=== PATIENT | male | born 1990 | race Two or more races ===

== ENCOUNTER 2024-11-14 14:39 | Inpatient (IN) | payer OTHER ==
[~2024-11-14] VITALS: Ht 177.8 cm; Wt 96.8 kg
[2024-11-14 14:50] VITALS: TEMP 98.8
--- NOTE | 2024-11-14 15:05 | ED.PDOC ---
History of Present Illness HPI Comments 34-year-old male BIBA with no prior medical history associated to the chief complain of EtOH. EMS not the [facility] lying on the ground when bystanders saw the patient foaming from the mouth and called 911, possibly due from on OD. When police arrived on scene the patient was very uncooperative wit h them and had to be restrained. Patient did have one episode of emesis. Spit mask was put onto the patient in route to ER. Denies chills, fever, /D, SOB, CP. No other associated symptoms, modifiers, recent injuries or sick contacts present at this time. Chief Complaint: ETOH Time Seen by MD: 15:00 Reviewed Notes: Nurses Notes, Medications, Allergies Allergies: Coded Allergies: NO KNOWN ALLERGIES (Unverified , 11/14/24) Information Source: Patient Mode of Arrival: EMS Severity: Moderate Timing: Came on: Gradually Duration: Since onset Prehospital treatment: None Past Medical History PAST MEDICAL HISTORY: Denies Surgical History: Denies all surgeries Family History Family History: Reviewed,noncontributory to illness, Unknown Social History Smoker: Non-Smoker Alcohol: Heavy Drugs: Denies Drug Use Lives In: Home Constitutional: reports: others (ETOH); denies: chills, diaphoresis, fatigue, fever, malaise, sweats, weakness EENTM: denies: blurred vision, double vision, ear bleeding, ear discharge, ear drainage, ear pain, ear ringing, eye pain, eye redness, hearing loss, mouth pain, mouth swelling, nasal discharge, nose bleeding, nose congestion, nose pain, photophobia, tearing, throat pain, throat swelling, voice changes, others Respiratory: denies: cough, hemoptysis, orthopnea, SOB at rest, shortness of breath, SOB with excertion, stridor, wheezing, others Cardiovascular: denies: chest pain, dizzy spells, diaphoresis, Dyspnea on exertion, edema, irregular heart beat, left arm pain, lightheadedness, palpitations, PND, syncope, others Gastrointestinal: reports: nausea, vomiting; denies: abdomen distended, abdominal pain, blood streaked bowels, constipated, diarrhea, dysphagia, difficulty swallowing, hematemesis, melena, poor appetite, poor fluid intake, rectal bleeding, rectal pain, others Genitourinary: denies: burning, dysuria, flank pain, frequency, hematuria, incontinence, penile discharge, penile sore, pain, testicle pain, testicle swelling, urgency, others Neurological: denies: dizziness, fainting, headache, left sided numbness, left sided weakness, numbness, paresthesia, pre-existing deficit, right sided numbness, right sided weakness, seizure, speech problems, tingling, tremors, weakness, others Musculoskeletal: denies: back pain, gout, joint pain, joint swelling, muscle pain, muscle stiffness, neck pain, others Integumetry: denies: bruises, change in color, change in hair/nails, dryness, laceration, lesions, lumps, rash, wounds, others Allergic/Immunocompromised: denies: Difficulty Healing, Frequent Infections, Hives, Itching, others Hematologic/Lymphatic: denies: anemia, blood clots, easy bleeding, easy bruising, swollen glands, others Endocrine: denies: excessive hunger, excessive sweating, excessive thirst, excessive urination, flushing, intolerance to cold, intolerance to heat, un explained weight gain, unexplained weight loss, others Psychiatric: denies: anxiety, bipolar disorder, depression, hopeless, panic disorder, schizophrenia, sleepless, suicidal, others All Other Systems: Reviewed and Negative Physical Exam General Appearance: Moderate Distress, Normal HEENT: Normal ENT Inspection, Pharynx Normal, TMs Normal Neck: Full Range of Motion, Non-Tender, Normal, Normal Inspection Respiratory: Chest Non-Tender, Lungs Clear, No Accessory Muscle Use, No Respiratory Distress, Normal Breath Sounds Cardiovascular: No Edema, No JVD, No Murmur, No Gallop, Normal Peripheral Pulse s, Regular Rate/Rhythm Breast Exam: Deferred Gastrointestinal: No Organomegaly, Non Tender, No Pulsatile Mass, Normal Bowel Sounds, Soft Genitalia: Deferred Pelvic: Deferred Rectal: Deferred Extremities: No calf tenderness, Normal capillary refill, Normal range of motion, Non-tender, No pedal edema Musculoskeletal : Apperance: Normal Neurologic: Disoriented, No Motor Deficits, Normal Mood, No Sensory Deficits Cerebellar Function: NOT DONE Reflexes: NOT DONE Skin: Dry, Normal Color, Warm Lymphatic: No Adenopathy Was a procedure done? Was a procedure done?: No Differential Dx Considerations may include: Metabolic encephalopathy Alcohol abuse X-Ray, Labs, Meds, VS Vital Signs Date Time Temp Pulse Resp B/P (MAP) Pulse Ox O2 Delivery O2 Flow Rate FiO2 11/14/24 15:30 Room Air* 0 21 11/14/24 14:50 98.8 92 18 143/79 96 98.8 Current Medications Medications (Trade) Dose Ordered Sig/Brittany Route Start Time Stop Time Status Last Admin Sodium Chloride 1,000 ml @ 1,000 mls/hr Q1H ONCE IVB 11/14/24 16:45 11/14/24 17:44 11/14/24 17:10 Thiamine HCl 100 mg ONCE ONCE IV 11/14/24 16:45 11/14/24 16:46 DC 11/14/24 17:10 Patient altered. Very abusive. Try to get a CT scan of the head. Moving all extremities. Unknown which chemical he has ingested. Brain possibly intact. Establish intravenous access. Was given fluids. Was given thiamine. He was very aggressive in the CT scanner for which he had to be pulled out. Will be followed by night physician. Time of 1ST Reevaluation: 15:30 Reevaluation 1ST: Unchanged Patient Education/Counseling: Diagnosis, Treatment, Prognosis Family Education/Counseling: No Family Present SEPSIS Sepsis Screen Physician Orders Complete Blood Count (11/14/24 16:35) Drug Screen (11/14/24 16:35) Acetaminophen (11/14/24 16:35) Salicylate (11/14/24 16:35) Urinalysis (11/14/24 16:35) Chest Portable (11/14/24 16:35) Blood Alcohol (11/14/24 16:35) Sodium Chloride 0.9% (11/14/24 16:45) Basic Metabolic Panel (11/14/24 16:35) Head Without Contrast (11/14/24 16:35) Lorazepam 2mg/Ml Inj (Ativan Inj) (11/14/24 17:15) Vital Signs Date Time Temp Pulse Resp B/P (MAP) Pulse Ox O2 Delivery O2 Flow Rate FiO2 11/14/24 15:30 Room Air* 0 21 11/14/24 14:50 98.8 92 18 143/79 96 98.8 Medications Medications Dose Ordered Sig/Brittany Route Start Time Stop Time Status Last Admin Dose Admin Sodium Chloride 1,000 ml @ 1,000 mls/hr Q1H ONCE IVB 11/14/24 16:45 11/14/24 17:44 11/14/24 17:10 Thiamine HCl 100 mg ONCE ONCE IV 11/14/24 16:45 11/14/24 16:46 DC 11/14/24 17:10 Departure 1 Departure Time of Disposition: 17:18 Impression: Primary Impression: Metabolic encephalopathy Disposition: ADMITTED INPATIENT Admit to: Med Surg Condition: Guarded Critical Care Note Critical Care Time?: Yes (90 min-critical care time only) Stability Stability form required: No Heart Score Heart Score: Heart Score Response (Comments) Value History N/A 0 EKG N/A 0 Age N/A 0 Risk Factors N/A 0 Troponin N/A 0 Total 0 I personally scribed for DELMIS VEGA MD ([email or web address]) on 11/14/24 at 15:05. Electronically submitted by Irving Kwon ([email or web address]). DELMIS VEGA MD Nov 14, 2024 15:05
[2024-11-14] MEDS: NALOXONE HCL 1MG/ML 2ML SYRINGE IV ONE (16:45)
--- NOTE | 2024-11-14 17:08 | DVH ---
CHEST RADIOGRAPH Indication: sob Technique: Single frontal view of the chest was obtained Comparison: None FINDINGS: Lines and Tubes: None. There is no findings to suggest placement of enteric tube. Lungs: No focal consolidation. Pleura: No effusion. No pneumothorax. Cardiomediastinal contours: Unremarkable Bones: No acute osseous abnormality. IMPRESSION: 1. No acute cardiopulmonary disease. 2. No findings to suggest enteric tube placement.
[2024-11-14] MEDS: THIAMINE 100mg/ml INJ (200mg/2ml VIAL) IV ONE (17:10)
[2024-11-14] MEDS: SODIUM CHLORIDE 0.9% 1,000 ML IVB ONE (17:10)
[2024-11-14] MEDS: LORazepam 2MG/ML-1ML VIAL ONE (17:30)
[2024-11-14] MEDS: LORazepam 2MG/ML-1ML VIAL IV ONE (17:43)
[2024-11-14 18:14] LABS: Hematocrit 46.1 % (41.0-53.0); Hemoglobin 15.8 g/dL (13.5-17.5); Mean Corpuscular Hemoglobin 28.5 pg (28.0-32.0); Mean Corpuscular Volume 83.3 fL (80.0-100.0); Nucleated Red Blood Cells % 0.1 %
[2024-11-14 18:19] LABS: Potassium 3.6 mmol/L (3.5-5.1); Sodium 143 mmol/L (136-145)
[2024-11-14 18:20] LABS: Anion Gap 13 (5-15); Carbon Dioxide 21 mmol/L (20-31)
[2024-11-14 18:25] LABS: BUN/Creatinine Ratio 9.7 (10.0-20.0); Calcium 8.6 mg/dL (8.7-10.4); Chloride 109 mmol/L (98-107); Glucose 96 mg/dL (74-106)
[2024-11-14 18:37] LABS: Acetaminophen < 2.0 UG/ML (10.0-20.0); Salicylate < 3.0 mg/dL (-30)
[2024-11-14 18:38] LABS: Blood Urea Nitrogen 9 mg/dL (9-23)
[2024-11-14 19:30] VITALS: PULSE 77; RESP 12; O2SAT 94
[2024-11-14 22:08] LABS: Amphetamine Screen, Urine Neg (NEGATIVE); Barbiturate Scree,Urine Neg (NEGATIVE); Benzodiazephine Screen, Urine Neg (NEGATIVE); Cannabinoid Screen, Urine Neg (NEGATIVE); Cocaine Screen, Urine Neg (NEGATIVE); Opiate Scree,Urine Neg (NEGATIVE); Phencyclidine Screen, Urine Neg (NEGATIVE)
[2024-11-14 22:13] LABS: Urine Protein, UAD Negative (Negative)
--- NOTE | 2024-11-14 22:41 | DVH ---
EXAM: CT HEAD WITHOUT CONTRAST INDICATION: altred TECHNIQUE: CT of the head without intravenous contrast. Radiation Dose Information: CT Dose: CTDI volume is 61.65 mGy. Dose-length product is 1.71 mGy*cm The dose indicators for CT are the volume Computed Tomography (CT) Dose Index (CTDIvol) and the Dose Length Product (DLP), and are measured in units of mGy and mGy-cm, respectively. These indicators are not patient dose, but values generated from the CT scanner acquisition factors. The report includes radiation exposure data for exposures received during this examination. COMPARISON: None FINDINGS: There is no evidence of acute intracranial hemorrhage, extra-axial collection, mass effect, midline s hift, herniation or hydrocephalus. The ventricles, sulci and cisterns are age appropriate. The deras-white differentiation is intact. Patchy periventricular and subcortical white matter hypoattenuation is nonspecific but may be related to small vessel ischemic disease. The visualized paranasal sinuses and mastoid air cells are clear. The surrounding soft tissues and osseous structures are unremarkable. IMPRESSION: 1. No acute intracranial abnormality.
[2024-11-14] MEDS: HALOPERIDOL LACTATE 5 MG/ML INJ VIAL IM ONE (23:06)
[2024-11-15] MEDS ORDERED: HYDROcodone-ACET 5/325MG TAB PO PRN
[2024-11-15] MEDS ORDERED: ACETAMINOPHEN 325 MG TAB PO PRN
[2024-11-15] MEDS ORDERED: LORazepam 2MG/ML-1ML VIAL IV PRN
[2024-11-15] MEDS ORDERED: DOCUSATE SOD 100 MG CAP PO PRN
[2024-11-15] MEDS ORDERED: MORPHINE SULFATE INJ 2 MG/ml SYRG IV PRN
[2024-11-15] MEDS ORDERED: NITROGLYCERIN 0.4 MG SL TAB SL PRN
[2024-11-15] MEDS: SODIUM CHLORIDE 0.9% 1,000 ML IV ONE (00:11)
[2024-11-15 01:00] VITALS: BP 91/55; PULSE 66; RESP 16; O2SAT 97
[2024-11-15 03:00] VITALS: BP 101/56; PULSE 74; RESP 15; O2SAT 95
[2024-11-15 04:48] LABS: Hematocrit 46.1 % (41.0-53.0); Hemoglobin 16.0 g/dL (13.5-17.5); Mean Corpuscular Hemoglobin 28.8 pg (28.0-32.0); Mean Corpuscular Volume 83.0 fL (80.0-100.0); Nucleated Red Blood Cells % 0.1 %
[2024-11-15 05:00] VITALS: BP 114/69; PULSE 76; RESP 16; O2SAT 95
[2024-11-15 05:08] LABS: Alanine Aminotransferase 27 U/L (7-40); Albumin 4.7 g/dL (3.2-4.8); Alkaline Phosphatase 85 U/L (46-116); Anion Gap 14 (5-15); BUN/Creatinine Ratio 12.9 (10.0-20.0); Bilirubin, Total 0.9 mg/dL (0.2-1.0); Blood Urea Nitrogen 12 mg/dL (9-23); Calcium 9.0 mg/dL (8.7-10.4); Carbon Dioxide 23 mmol/L (20-31); Chloride 106 mmol/L (98-107); Potassium 3.9 mmol/L (3.5-5.1); Sodium 143 mmol/L (136-145); Total Protein 7.1 g/dL (5.7-8.2)
[2024-11-15 05:10] LABS: Glucose 58 mg/dL (74-106)
[2024-11-15] MEDS: GABAPENTIN 300 MG CAP PO SCH (05:54)
[2024-11-15] MEDS ORDERED: ZINC SULFATE 220mg CAP or TAB PO SCH (10:00)
[2024-11-15] MEDS ORDERED: MULTIPLE VITAMIN TAB PO SCH (10:00)
[2024-11-15] MEDS ORDERED: ASCORBIC ACID 500 MG TAB PO SCH (10:00)
--- NOTE | 2024-11-15 14:08 | DVHHP2 ---
Admitting Diagnosis: ETOH use History of Present Illness 34-year-old male CALE with no prior medical history associated to the chief complain of EtOH. EMS not the [facility] lying on the ground when ernesto miller saw the patient foaming from the mouth and called 911, possibly due from on OD. When police arrived on scene the patient was very uncooperative with them and had to be restrained. Patient did have one episode of emesis. Spit mask was put onto the patient in route to ER. Denies chills, fever, /D, SOB, CP. No other associated symptoms, modifiers, recent injuries or sick contacts present at this time. While in the emergency department the patient was evaluated by the provider, As per provider: Labs, vital signs, and imagining monitored. Patient will be admitted for further evaluation and treatment. I discussed admission with the patient/family and is in agreement to treatment plan. Allergies: Coded Allergies: NO KNOWN ALLERGIES (Unverified , 11/14/24) Current Medications Current Medications Medications (Trade) Dose Ordered Sig/Brittany Route PRN Reason Start Time Stop Time Status Last Admin Acetaminophen (Tylenol Tablet) 325 mg Q4HP PRN PO MILD PAIN (1-3 PAIN SCALE) 11/15/24 00:00 Acetaminophen/ Hydrocodone Bitart (Adams 5/325MG Tab) 1 tab Q4HP PRN PO MODERATE PAIN (4-6 PAIN SCALE) 11/15/24 00:00 Docusate Sodium (Colace Capsule) 100 mg BIDPRN PRN PO FOR CONSTIPATION 11/15/24 00:00 Zinc Sulfate 220 mg DAILY PO 11/15/24 10:00 Ascorbic Acid (Vitamin C Tablet) 500 mg BID PO 11/15/24 10:00 Multivitamins (Mvi Tab) 1 tab DAILY PO 11/15/24 10:00 Nitroglycerin (Ntrostat Sublingual) 0.4 mg Q5MINP PRN SL FOR CHEST PAIN 11/15/24 00:00 Morphine Sulfate 2 mg Q30M PRN IV FOR CHEST PAIN 11/15/24 00:00 Folic Acid 1 mg/ Multivitamins 10 ml/Magnesium Sulfate 8 meq/ Thiamine HCl 100 mg/Dextrose 1,013.2 ml @ 125.001 mls/hr DAILY@1800 INJ 11/15/24 18:00 Gabapentin (Neurontin Capsule) 300 mg TID PO 11/15/24 06:00 Lorazepam (Ativan Inj) 0.5 mg Q6HP PRN IV ANXIETY 11/15/24 00:00 Review of Systems Constitutional: denies chills, denies fever, denies malaise Eyes: denies eye pain, denies vision change ENT: denies ear pain, denies headache, denies nasal congestion, denies painful swallowing, denies voice change Cardiovascular: denies chest pain, denies edema, denies orthopnea, denies palpitations, denies paroxysmal nocturnal dyspnea Respiratory: denies cough, denies shortness of breath Gastrointestinal: denies constipation, denies diarrhea, denies nausea, denies vomiting Genitourinary: denies dysuria, denies frequent urination, denies urethral discharge Musculoskeletal: denies back pain, denies joint pain, denies muscle pain Skin: denies bruising, denies itching, denies rash Neurological: denies focal weakness, denies headache, denies sensory changes Psychiatric: denies anxiety, denies depression Endocrine: denies polydipsia, denies polyuria Hematologic/Lymphatic: denies easy bleeding, denies easy bruising, denies enlarged lymph nodes Allergic/Immunologic: denies allergy, denies hives Vital Signs Vital Signs Date Time Temp Pulse Resp B/P (MAP) Pulse Ox O2 Delivery O2 Flow Rate FiO2 11/15/24 05:00 76 16 114/69 (84) 95 11/14/24 19:30 Room Air* 0 21 11/14/24 14:50 98.8 98.8 Physical Exam General Appearance: alert, no distress HEENT: EOMI, PERRLA, normal external inspect of ears, no icterus, no nasal drainage Neck: no carotid bruit, no jugular venous distention (JVD), no lymphadenopathy Chest: normal thorax Respiratory: clear to auscultation, normal air movement Cardiovascular: regular rate and rhythm, no diastolic murmur, no jugular venous distention (JVD), no rub, no systolic murmur Abdominal: soft, no hepatomegaly, no mass, no splenomegaly, no tenderness Genitourinary: grossly normal external Musculoskeletal: no joint tenderness, no swelling Extremities: normal pulses, no calf tenderness, no clubbing, no cyanosis, no edema Skin: no bruising, no jaundice, no rash Neurological: alert, No focal deficit SEPSIS Sepsis Screen Date sepsis recognized/suspect: Nov 14, 2024 Time Sepsis recognized/suspect: 1531 Recent Procedure: No On Antibiotic Therapy: No Respiratory Rate >20: No Heart Rate >90: No Temp<36 C (96.8 F) or >38.3 C: No SBP <90 or MAP <65 mmHG: No New Acute Mental Status Change: Yes Is the patient on CPAP, BIPAP,: No Physician Orders Chest Portable (11/14/24 16:35) Head Without Contrast (11/14/24 16:35) Restraint Assessment Behaviora Q15M (11/14/24 17:30) Behavioral Restraints (11/14/24 17:30) Hat Trimmer (11/14/24 ) Admit (11/14/24 23:55) Acetaminophen Tablet (Tylenol Tablet) (11/15/24 00:00) Hydrocodone-Acet 5/325mg Tab (Adams 5/32 (11/15/24 00:00) Docusate Sodium Capsule (Colace Capsule) (11/15/24 00:00) Zinc Sulfate (11/15/24 10:00) Ascorbic Acid Tablet (Vitamin C Tablet) (11/15/24 10:00) Multiple Vitamin Tablet (Mvi Tab) (11/15/24 10:00) Cardiac Diet-2gna,Lofat,Lochol (11/15/24 Breakfast) Nitroglycerin Sublingual (Ntrostat Subli (11/15/24 00:00) Morphine Sulfate Injection (11/15/24 00:00) Stat Ekg For Chest Pain (11/14/24 23:55) Notify Md Of Changes From Base (11/14/24 23:55) Accelerator Systems Director For 24 Hours (11/14/24 23:55) Emergency Dysrhythmia Protocol (11/14/24 23:55) Rhythm Strips Once Every Shift (11/14/24 23:55) Oxygen By Nasal Cannula (11/14/24 23:55) Folic Acid... (11/15/24 18:00) Gabapentin Capsule (Neurontin Capsule) (11/15/24 06:00) Lorazepam 2mg/Ml Inj (Ativan Inj) (11/15/24 00:00) Vital Signs Date Time Temp Pulse Resp B/P (MAP) Pulse Ox O2 Delivery O2 Flow Rate FiO2 11/15/24 05:00 76 16 114/69 (84) 95 11/15/24 04:00 81 11/15/24 03:00 74 15 101/56 (71) 95 11/15/24 01:00 66 16 91/55 (67) 97 11/15/24 00:13 70 11/15/24 00:00 68 13 97/54 (68) 95 11/14/24 22:00 79 13 125/81 (96) 95 11/14/24 20:00 84 14 104/71 (82) 95 11/14/24 20:00 82 11/14/24 19:30 77 12 114/66 (82) 96 11/14/24 19:30 77 12 94 Room Air* 0 21 11/14/24 19:07 76 16 105/73 (84) 96 11/14/24 16:00 76 20 92/50 (64) 90 11/14/24 15:30 Room Air* 0 21 11/14/24 15:14 85 14 101/57 (72) 93 11/14/24 14:50 98.8 92 18 143/79 96 98.8 Laboratory Tests Test 11/14/24 18:03 11/15/24 04:05 White Blood Count 11.1 10^3/uL (4.4-10.8) H 15.4 10^3/uL (4.4-10.8) #H Results Labs Test 11/15/24 04:05 11/14/24 21:45 11/14/24 18:03 Range/Units White Blood Count 15.4 #H 4.4-10.8 10^3/uL Red Blood Count 5.55 4.5-5.90 10^6/uL Hemoglobin 16.0 13.5-17.5 g/dL Hematocrit 46.1 41.0-53.0 % Mean Corpuscular Volume 83.0 80.0-100.0 fL Mean Corpuscular Hemoglobin 28.8 28.0-32.0 pg Mean Corpuscular Hemoglobin Concent 34.8 32.0-36.0 g/dL Red Cell Distribution Width 13.5 11.8-14.3 % Platelet Count 284 140-450 10^3/uL Mean Platelet Volume 8.5 6.9-10.8 fL Neutrophils (%) (Auto) 78.9 37.0-80.0 % Lymphocytes (%) (Auto) 15.0 10.0-50.0 % Monocytes (%) (Auto) 5.5 0.0-12.0 % Eosinophils (%) (Auto) 0.2 0.0-7.0 % Basophils (%) (Auto) 0.4 0.0-2.0 % Neutrophils # (Auto) 12.2 H 1.6-8.6 10 ^3/uL Lymphocytes # (Auto) 2.3 0.4-5.4 10 ^3/uL Monocytes # (Auto) 0.9 0-1.3 10 ^3/uL Eosinophils # (Auto) 0 0-0.8 10 ^3/uL Basophils # (Auto) 0.1 0-0.2 10 ^3/uL Nucleated Red Blood Cells 0.1 % Sodium Level 143 136-145 mmol/L Potassium Level 3.9 3.5-5.1 mmol/L Chloride Level 106 98-107 mmol/L Carbon Dioxide Level 23 20-31 mmol/L Anion Gap 14 5-15 Blood Urea Nitrogen 12 9-23 mg/dL Creatinine 0.93 0.700-1.30 mg/dL Glomerular Filtration Rate Calc 111 >90 mL/min BUN/Creatinine Ratio 12.9 10.0-20.0 Serum Glucose 58 L 74-106 mg/dL Calcium Level 9.0 8.7-10.4 mg/dL Total Bilirubin 0.9 0.2-1.0 mg/dL Aspartate Amino Transferase (AST) 46 H 13-40 U/L Alanine Aminotransferase (ALT) 27 7-40 U/L Alkaline Phosphatase 85 46-116 U/L Total Protein 7.1 5.7-8.2 g/dL Albumin 4.7 3.2-4.8 g/dL Urine Color Light-yellow Yellow Urine Clarity Clear Clear Urine pH 5.5 5.0-9.0 Urine Specific [place] 1.011 1.001-1.035 Urine Protein Negative Negative Urine Ketones 1+ H Negative Urine Blood Negative Negative /uL Urine Nitrite Negative Negative Urine Bilirubin Negative Negative Urine Urobilinogen Normal Negative mg/dL Urine Leukocyte Esterase Negative Negative /uL Urine RBC <1 0 - 3 /hpf Urine Microscopic WBC < 1 0-3 /HPF Urine Squamous Epithelial Cells None seen <5 /hpf Urine Bacteria None seen None Seen /hpf Urine Hyaline Casts Few 0 - 2 /lpf Urine Mucus Few None Seen Urine Glucose Normal Normal mg/dL Urine Opiates Screen Neg NEGATIVE Urine Fentanyl Screen Neg NEGATIVE Urine Barbiturates Screen Neg NEGATIVE Urine Phencyclidine Screen Neg NEGATIVE Urine Amphetamines Screen Neg NEGATIVE Urine Benzodiazepines Screen Neg NEGATIVE Urine Cocaine Screen Neg NEGATIVE Urine Cannabinoids Screen Neg NEGATIVE Salicylates Level < 3.0 -30 mg/dL Acetaminophen Level < 2.0 L 10.0-20.0 UG/ML Plasma/Serum Blood Alcohol 289.8 H <10 mg/dL Plan 1. ETOH Monitor, banana bag, gabapentin, PRN ativan 2. Toxic encephalopathy Monitor, monitor neurostatus, seizure precautions 3. Obesity Monitor, PPI Plan discussed with: Patient, Other JOE KAPOOR NP Nov 15, 2024 14:08
--- NOTE | 2024-11-15 14:08 | DVHDS2 ---
Discharge Summary Date of Admission Nov 14, 2024 at 23:55 Date of Discharge: Nov 15, 2024 Labs/Diagnostic Data: Laboratory Results Test 11/15/24 04:05 11/14/24 21:45 11/14/24 18:03 White Blood Count 15.4 10^3/uL (4.4-10.8) Red Blood Count 5.55 10^6/uL (4.5-5.90) Hemoglobin 16.0 g/dL (13.5-17.5) Hematocrit 46.1 % (41.0-53.0) Mean Corpuscular Volume 83.0 fL (80.0-100.0) Mean Corpuscular Hemoglobin 28.8 pg (28.0-32.0) Mean Corpuscular Hemoglobin Concent 34.8 g/dL (32.0-36.0) Red Cell Distribution Width 13.5 % (11.8-14.3) Platelet Count 284 10^3/uL (140-450) Mean Platelet Volume 8.5 fL (6.9-10.8) Neutrophils (%) (Auto) 78.9 % (37.0-80.0) Lymphocytes (%) (Auto) 15.0 % (10.0-50.0) Monocytes (%) (Auto) 5.5 % (0.0-12.0) Eosinophils (%) (Auto) 0.2 % (0.0-7.0) Basophils (%) (Auto) 0.4 % (0.0-2.0) Neutrophils # (Auto) 12.2 10 ^3/uL (1.6-8.6) Lymphocytes # (Auto) 2.3 10 ^3/uL (0.4-5.4) Monocytes # (Auto) 0.9 10 ^3/uL (0-1.3) Eosinophils # (Auto) 0 10 ^3/uL (0-0.8) Basophils # (Auto) 0.1 10 ^3/uL (0-0.2) Nucleated Red Blood Cells 0.1 % Sodium Level 143 mmol/L (136-145) Potassium Level 3.9 mmol/L (3.5-5.1) Chloride Level 106 mmol/L (98-107) Carbon Dioxide Level 23 mmol/L (20-31) Anion Gap 14 (5-15) Blood Urea Nitrogen 12 mg/dL (9-23) Creatinine 0.93 mg/dL (0.700-1.30) Glomerular Filtration Rate Calc 111 mL/min (>90) BUN/Creatinine Ratio 12.9 (10.0-20.0) Serum Glucose 58 mg/dL (74-106) Calcium Level 9.0 mg/dL (8.7-10.4) Total Bilirubin 0.9 mg/dL (0.2-1.0) Aspartate Amino Transferase (AST) 46 U/L (13-40) Alanine Aminotransferase (ALT) 27 U/L (7-40) Alkaline Phosphatase 85 U/L (46-116) Total Protein 7.1 g/dL (5.7-8.2) Albumin 4.7 g/dL (3.2-4.8) Urine Color Light-yellow (Yellow) Urine Clarity Clear (Clear) Urine pH 5.5 (5.0-9.0) Urine Specific [place] 1.011 (1.001-1.035) Urine Protein Negative (Negative) Urine Ketones 1+ (Negative) Urine Blood Negative /uL (Negative) Urine Nitrite Negative (Negative) Urine Bilirubin Negative (Negative) Urine Urobilinogen Normal mg/dL (Negative) Urine Leukocyte Esterase Negative /uL (Negative) Urine RBC <1 /hpf (0 - 3) Urine Microscopic WBC < 1 /HPF (0-3) Urine Squamous Epithelial Cells None seen /hpf (<5) Urine Bacteria None seen /hpf (None Seen) Urine Hyaline Casts Few /lpf (0 - 2) Urine Mucus Few (None Seen) Urine Glucose Normal mg/dL (Normal) Urine Opiates Screen Neg (NEGATIVE) Urine Fentanyl Screen Neg (NEGATIVE) Urine Barbiturates Screen Neg (NEGATIVE) Urine Phencyclidine Screen Neg (NEGATIVE) Urine Amphetamines Screen Neg (NEGATIVE) Urine Benzodiazepines Screen Neg (NEGATIVE) Urine Cocaine Screen Neg (NEGATIVE) Urine Cannabinoids Screen Neg (NEGATIVE) Salicylates Level < 3.0 mg/dL (-30) Acetaminophen Level < 2.0 UG/ML (10.0-20.0) Plasma/Serum Blood Alcohol 289.8 mg/dL (<10) Other Laboratory Tests 11/15/24 04:05 Brief Hx & Hospital Course: The patient decided they wanted to leave AMA. The patient was informed about the risk of leaving. And was informed about the risk that are involved if they left without any treatment which may include . The patient was okay with it and decided to leave without any intervention. The patient was told to return for any worsening symptoms. Condition at Discharge: Unstable Final Diagnosis/Problems List 1. ETOH 2. Toxic encephalopathy 3. Obesity Discharge Disposition: AMA Discharge Statement: "Patient was advised to return to the ER or call 911 if any headaches, dizziness, shortness of breath, chest pain, abdominal pain, bleeding, fevers, or worsening of medical condition. Patient was counseled about treatment plan, medications, possible side effects, patientverbalized understanding. All questions were answered to the best of my ability. This discharge took greater then 30 minutes in planning, reviewing documentation, counseling the patient, and discussing with other team members." ASSESSMENT ASSESSMENT Assessment JOE KAPOOR NP Nov 15, 2024 14:08
[2024-11-15] MEDS ORDERED: FOLIC ACID 1 MG, MULTIPLE VITAMIN 10 ML, MAGNESIUM SULF SDV 50% 8 MEQ, THIAMINE INJ 100... INJ SCH (18:00)
== END 2024-11-15 10:21 | disposition left against medical advice (07) | DRG 52 ==
LOC: EDBD 14:39 → ER 14:39 → OVERFLOW 23:55
PROVIDERS: ADMIT Internal Medicine; ATTEND Internal Medicine
DX: G92.8 Other toxic encephalopathy (principal); E66.9 Obesity, unspecified; Z53.29 Procedure and treatment not carried out because of patient's decision for other reasons; F10.90 Alcohol use, unspecified, uncomplicated; Z68.30 Body mass index [BMI] 30.0-30.9, adult; Z79.899 Other long term (current) drug therapy; Y90.8 Blood alcohol level of 240 mg/100 ml or more
CPT/HCPCS: 36415; 70450; 71045; 80048; 80053; 80307; 80320; 80329; 81001; 85025; 96360; 99291; G0378